=== PATIENT | male | born 1985 | race Two or more races ===

== ENCOUNTER 2023-08-08 16:31 | Emergency (ER) | payer OTHER ==
[~2023-08-08] VITALS: Ht 177.8 cm; Wt 88.3 kg
[2023-08-08] MEDS ORDERED: HYDR-4902 PO (19:02)
[2023-08-08] MEDS ORDERED: IBU600T PO (19:02)
[2023-08-08] MEDS: HYDROcodone-ACET 5/325MG TAB PO ONE (19:59)
[2023-08-08] MEDS: IBUPROFEN 800 MG TAB PO ONE (19:59)
[2023-08-08 20:01] VITALS: BP 136/80; PULSE 85; RESP 18; TEMP 98.1; O2SAT 96
== END 2023-08-08 20:00 | disposition home or self-care (01) ==
LOC: EDSEX 16:31 → ER 16:31
DX: S62.603A Fracture of unspecified phalanx of left middle finger, initial encounter for closed fracture (principal); S33.5XXA Sprain of ligaments of lumbar spine, initial encounter; S83.92XA Sprain of unspecified site of left knee, initial encounter; V27.41XA Electric (assisted) bicycle driver injured in collision with fixed or stationary object in traffic accident, initial encounter; Y93.55 Activity, bike riding; Y92.488 Other paved roadways as the place of occurrence of the external cause; Y99.8 Other external cause status
CPT/HCPCS: 29130; 70450; 72131; 72192; 73120; 73560